=== PATIENT | female | born 2000 | race Caucasian/White ===

== ENCOUNTER 2018-05-30 21:15 | Outpatient (CLI) | payer BC, MEDICAID ==
[~2018-05-30] VITALS: Ht 149.9 cm; Wt 75.0 kg
[2018-05-30 21:31] VITALS: BP 103/81
[2018-05-30 21:55] LABS: MICROSCOPIC INDICATED
[2018-05-30 22:03] LABS: AMPHETAMINE SCREEN, URINE Negative (Negative); BENZODIAZEPINE SCREEN, URINE Negative (Negative); COCAINE SCREEN, URINE Negative (Negative); METHADONE SCREEN, URINE Negative (Negative); OPIATE SCREEN, URINE Negative (Negative)
[2018-05-30 22:05] LABS: BARBITURATE SCREEN, URINE Negative (Negative); CANNABINOID SCREEN, URINE Positive (Negative)
[2018-05-30 22:46] LABS: BASOPHILS # (AUTO) 0.11 x10^3/uL (0-0.3); BASOPHILS % (AUTO) 1 % (0-1); EOSINOPHILS # (AUTO) 0.28 x10^3/uL (0-0.8); EOSINOPHILS % (AUTO) 2 % (1-7); LYMPHOCYTES # (AUTO) 2.86 x10^3/uL (1-6.1); LYMPHOCYTES % (AUTO) 18 % (22-44); MD NO; MEAN CORPUSCULAR HEMOGLOBIN 28.1 pg (27.0-34.8); MEAN CORPUSCULAR HGB CONC 33.7 g/dL (32.4-35.8); MEAN CORPUSCULAR VOLUME 83.4 fL (80-100); MEAN PLATELET VOLUME 8.1 fL (7.4-10.4); MONOCYTES # (AUTO) 0.94 x10^3/uL (0-1.4); MONOCYTES % (AUTO) 6 % (2-9); NEUTROPHILS # (AUTO) 11.36 x10^3/uL (1.8-8.0); NEUTROPHILS % (AUTO) 73 % (42-75); PLATELET COUNT 282 x10^3/uL (130-400); RED CELL DISTRIBUTION WIDTH 13.5 % (9.6-15.2)
[2018-05-30] MEDS ORDERED: ALBU1.25 INH (22:54)
[2018-05-30] MEDS ORDERED: DEXT-230 PO (22:59)
== END 2018-05-31 00:20 | disposition home or self-care (01) ==
LOC: LDOP 21:15
PROVIDERS: ATTEND Obstetrics & Gynecology
DX: O62.8 Other abnormalities of forces of labor (principal); O99.333 Smoking (tobacco) complicating pregnancy, third trimester; J45.909 Unspecified asthma, uncomplicated; Z3A.35 35 weeks gestation of pregnancy; Z88.8 Allergy status to other drugs, medicaments and biological substances
CPT/HCPCS: 59025; 76805; 80307; 81001; 82962; 85025; 86592; 86762; 86850; 86900; 87081; 87086; 87340; 87806; 99201; G0463; G0475

== ENCOUNTER 2018-06-02 14:14 | Outpatient (CLI) | payer MEDICAID ==
[~2018-06-02] VITALS: Ht 149.9 cm; Wt 75.5 kg
[~2018-06-02 14:14] MED LIST: ALBU1.25 INH; DEXT-230 PO
[2018-06-02 15:54] VITALS: BP 115/74
[2018-06-02 16:06] LABS: AMPHETAMINE SCREEN, URINE Negative (Negative); BARBITURATE SCREEN, URINE Negative (Negative); BENZODIAZEPINE SCREEN, URINE Negative (Negative); CANNABINOID SCREEN, URINE Positive (Negative); COCAINE SCREEN, URINE Negative (Negative); METHADONE SCREEN, URINE Negative (Negative); OPIATE SCREEN, URINE Negative (Negative)
== END 2018-06-02 16:45 | disposition home or self-care (01) ==
LOC: LDOP 14:14
PROVIDERS: ATTEND Obstetrics & Gynecology
DX: O26.893 Other specified pregnancy related conditions, third trimester (principal); Z3A.33 33 weeks gestation of pregnancy; R10.9 Unspecified abdominal pain; Z91.5 Personal history of self-harm
CPT/HCPCS: 59025; 80307; 99211; G0463